=== PATIENT | female | born 1950 | race Two or more races ===

== ENCOUNTER 2020-08-16 14:08 | Day surgery (SDC) | payer OTHER ==
[~2020-08-16 14:08] MED LIST: ZESTORETIC 20-1 EAC1 PO
== END 2020-08-16 23:05 | disposition home or self-care (01) ==
LOC: CIR.AMB 14:08 → U 14:08 → CIR.AMB 23:05
PROVIDERS: ATTEND Obstetrics & Gynecology Obstetrics
DX: N84.0 Polyp of corpus uteri (principal); Z20.822 Contact with and (suspected) exposure to COVID-19